=== PATIENT | female | born 1965 | race Native Hawaiian/Other Pacific Islander ===

== ENCOUNTER 2016-12-02 18:29 | Emergency (ER) | payer OTHER ==
[2016-12-02 18:50] VITALS: BP 163/103
--- NOTE | 2016-12-02 19:01 | Emergency Department Report ---
Chief Complaint: Dyspnea/Respdistress Stated Complaint: CHEST PAIN Time Seen by Provider: 12/02/16 18:56 - HPI History of Present Illness: 51-year-old female presents today with difficulty in breathing since yesterday. Positive for cough and chest pain. Denies nausea, vomiting, fever, chills, abdominal pain. - ROS Review of Systems: Per HPI - Exam Vital Signs: Vital Signs 12/02/16 18:43 Temperature 98.4 F Pulse Rate 105 H Respiratory 20 Rate Blood Pressure 163/103 O2 Sat by Pulse 100 Oximetry Physical Exam: General: 51-year-old female in no acute distress. Well-developed, well- nourished. CV: Regular rate and rhythm. Lungs: Clear to auscultation bilaterally. MSE screening note: Focused history and physical exam performed. Due to findings the following was ordered: ED Disposition for MSE Condition: Stable
[2016-12-02 20:11] LABS: Eosinophils % (Auto) 2.7 % (0.0-4.3); Hematocrit 36.8 % (30.3-42.9); Mean Corpuscular HGB Conc 33 % (30-34); Mean Corpuscular Volume 72 fl (79-97); Platelet Count 357 K/mm3 (140-440); Red Cell Distribution Width 16.1 % (13.2-15.2); White Blood Count 8.4 K/mm3 (4.5-11.0)
[2016-12-02 20:21] LABS: Mean Corpuscular Hemoglobin 24 pg (28-32)
[2016-12-02 20:32] LABS: Creatine Kinase MB 1.9 ng/mL (0.0-4.0)
[2016-12-02 20:34] LABS: Anion Gap 16 mmol/L; Blood Urea Nitrogen 15 mg/dL (7-17); Calcium 9.3 mg/dL (8.4-10.2); Carbon Dioxide 25 mmol/L (22-30); Chloride 101.3 mmol/L (98-107); Creatine Kinase 165 units/L (30-135); Glucose 108 mg/dL (65-100); Lipase 31 units/L (13-60); Potassium 3.7 mmol/L (3.6-5.0); Sodium 139 mmol/L (137-145)
--- NOTE | 2016-12-03 08:08 | XRay Report ---
CHEST TWO VIEWS: 12/02/16 18:29:00 CLINICAL: Shortness of breath. COMPARISON: 11/17/07 FINDINGS: Normal heart and pulmonary vasculature. The lungs are normally expanded and clear. The bones and soft tissues are normal. IMPRESSION: Normal chest.
--- NOTE | 2016-12-04 05:23 | ED Elopement Review ---
ED Pt Elopement review - Results review Lab results: Laboratory Tests 12/02/16 12/02/16 19:33 19:33 WBC 8.4 RBC 5.10 H Hgb 12.0 Hct 36.8 MCV 72 L MCH 24 L MCHC 33 RDW 16.1 H Plt Count 357 Lymph % (Auto) 29.1 [place] % (Auto) 9.5 H Eos % (Auto) 2.7 Baso % (Auto) 1.0 Lymph # 2.5 [place] # 0.8 Eos # 0.2 Baso # 0.1 Seg Neutrophils % 57.7 Seg Neutrophils # 4.9 Sodium 139 Potassium 3.7 Chloride 101.3 Carbon Dioxide 25 Anion Gap 16 BUN 15 Creatinine 0.6 L Estimated GFR > 60 BUN/Creatinine Ratio 25.00 Glucose 108 H Calcium 9.3 Total Creatine Kinase 165 H CK-MB (CK-2) 1.9 CK-MB (CK-2) Rel Index 1.1 Troponin T < 0.010 Lipase 31
== END 2016-12-03 07:57 | disposition left against medical advice (07) ==
LOC: ED 18:29
DX: R07.9 Chest pain, unspecified (principal); R05 Cough; Z53.21 Procedure and treatment not carried out due to patient leaving prior to being seen by health care provider
CPT/HCPCS: 36415; 71020; 80048; 82550; 82553; 83690; 84484; 85025; 93005; 93010